=== PATIENT | male | born 1995 | race African-American/Black ===

== ENCOUNTER 2017-01-04 00:21 | Emergency (ER) | payer OTHER ==
[2017-01-04 00:27] VITALS: BP 146/97
--- NOTE | 2017-01-04 02:00 | ED ---
Progress - Progress Note Progress Note: Pt LWBS Course/Dx - Course Course Of Treatment: Pt's triage and nursing report indicate pt has nasal discomfort w/o overt signs of emergency. Signed up for pt but before I could go to room, pt LWBS. - Diagnoses Provider Diagnoses: Patient left without being seen
== END 2017-01-04 01:49 | disposition left against medical advice (07) ==
LOC: ED 00:21
DX: R60.0 Localized edema (principal); Z53.21 Procedure and treatment not carried out due to patient leaving prior to being seen by health care provider

== ENCOUNTER 2017-09-20 00:28 | Emergency (ER) | payer OTHER ==
--- NOTE | 2017-09-20 01:06 | ED ---
GI/ HPI - HPI Summary HPI Summary: 22 male presents to ED with concern for having an STD after unprotected oral sex and then protected vaginal sex. Patient states he has had sexual intercourse with significant other and noticed today that he had a white colored discharge today. Admits to some discomfort with urination, "but not much ". No difficulty with urination or stream. Patient states he has been diagnosed with chlamydia 1.5 years ago and did have sexual intercourse with the same individual recently. States he does not know if patient has STDs. No concern for HIV or Syphillis as he is asymptomatic otherwise but does want to be checked with labwork. No other symptoms or complaints. Denies abdominal pain, bloody discharge, fever/chills. Normal bowel movements and no other complaints at this time. Denies bumps, lumps, rashes and other genitalia external symptoms. No PMHx. No other medications. Denies pain and itching. - History of Current Complaint Chief Complaint: EDExposureBodyFluid Stated Complaint: STD TESTING Hx Obtained From: Patient Onset/Duration: Started Hours Ago Timing: Intermittent Current Severity: None Pain Intensity: 0 Additional Locations for Males: Penis - urethrea, white discharge Associated Signs and Symptoms: Positive: Discharge - white from urethera Additional Signs & Symptoms: Positive: Penile Discharge, STD - hx of chlamydia unknown if exposed recently, is possible. Negative: Penile Swelling, Lesions Aggravating Factor(s): Voiding, Urination Alleviating Factor(s): Nothing - Allergy/Home Medications Allergies/Adverse Reactions: Allergies Allergy/AdvReac Type Severity Reaction Status Date / Time No Known Allergies Allergy Verified 02/04/14 15:17 PMH/Surg Hx/FS Hx/Imm Hx Endocrine/Hematology History: Denies: Hx Diabetes - Surgical History Surgery Procedure, Year, and Place: n/a - Immunization History Date of Tetanus Vaccine: UNKNOWN Immunizations Up to Date: Yes Infectious Disease History: No Infectious Disease History: Denies: Traveled Outside the [place] in Last 30 Days - Family History Known Family History: Negative: Diabetes - Social History Alcohol Use: None Hx Substance Use: No Substance Use Type: Reports: None Hx Tobacco Use: No Smoking Status (MU): Never Smoked Tobacco Review of Systems Constitutional: Negative Cardiovascular: Negative Respiratory: Negative Positive: discharge - penile discharge All Other Systems Reviewed And Are Negative: Yes Physical Exam Triage Information Reviewed: Yes Vital Signs On Initial Exam: Initial Vitals Temp Pulse Resp BP Pulse Ox 98.8 F 84 16 127/78 100 09/20/17 00:38 09/20/17 00:38 09/20/17 00:38 09/20/17 00:38 09/20/17 00:38 Vital Signs Reviewed: Yes Appearance: Positive: Well-Appearing, No Pain Distress, Well-Nourished Skin: Positive: Warm, Skin Color Reflects Adequate Perfusion, Dry, Other - without rash. Negative: Numb, Cyanosis @, Pale, Erythema @ Neck: Positive: Supple, Nontender Respiratory/Lung Sounds: Positive: Clear to Auscultation, Breath Sounds Present. Negative: Rales, Rhonchi, Wheezes Cardiovascular: Positive: Normal, RRR, Pulses are Symmetrical in both Upper and Lower Extremities. Negative: Murmur, Rub Male Genital Exam: Positive: normal genitalia - per patient,, other - patient refused exam, denied symptoms Musculoskeletal: Positive: Normal Neurological: Positive: Normal, Sensory/Motor Intact, Alert, Oriented to Person Place, Time, NV Bundle Intact Distally, Normal Gait Diagnostics - Vital Signs Vital Signs Temp Pulse Resp BP Pulse Ox 09/20/17 00:38 98.8 F 84 16 127/78 100 - Laboratory Lab Statement: Any lab studies that have been ordered have been reviewed, and results considered in the medical decision making process. GIGU Course/Dx - Course Course Of Treatment: urinaysis obtained. GC/Chlam, HIV and syphillis testing pending. Patient denied rashes, nodules, blisters, lumps, bumps and any external abnormalities. refused exam. Due to history, symptoms and concern for possibility of STD exposure was treated today with ceftriaxone and azithromycin. Patient educated on risk of STD and recurrent infections. Encouraged to use protection and avoid intercourse with individuals with infection. Also instructed he will hear about results once obtained and if positive partner will also have to be informed/treated. Instructed to refrain from sexual intercorse until symptoms persist and all partners have been treated. No other concerns at this time. No pain or other symptoms/complaints. Follow up with PCP in 3-5 days. Aware of worsening signs and symptoms to watch out for. I discussed all my findings and test results with the patient. Patient understands and agrees. Patient was instructed to return to the emergency room immediately if any of the symptoms return or worsens. Patient was signed out to Dr Reyna pending urinalysis results to ensure no UTI before discharge. No other concerns at this time. - Diagnoses Differential Diagnoses - Male: STD, Urinary Tract Infection, Other - penile discharge Provider Diagnoses: Sexually transmitted infection - Physician Notifications Discussed Care Of Patient With: Dr Reyna pending urinalysis results at shift change Time Discussed With Above Provider: 02:45 Discharge - Discharge Plan Condition: Stable Disposition: OTHER Discharge Disposition Comment: signed out to Dr Reyna pending urinalysis results at shift change Patient Education Materials: Sexually Transmitted Diseases (ED), Condom Use (ED ), Safe Sex (ED) Referrals: [facility] [place] [facility]FERRAL [Outside] Additional Instructions: Encourage using protection to avoid transmitting infection. Refrain from sexual intercourse until follow up with PCP and for at least 7-10 days. Also until both partners have been treated. You will hear about your results once obtained. Any new or worsening symptoms please seek medical attention promptly. Follow up with PCP in 3-5 days.
[2017-09-20] MEDS ORDERED: cefTRIAXone VIAL(*) 250 MG VIAL IM ONE (02:23)
[2017-09-20] MEDS ORDERED: Azithromycin TAB* 250 MG PO ONE (02:24)
[2017-09-20 02:45] LABS: Urine Appearance Clear; Urine Blood Negative (Negative); Urine Color Yellow; Urine Ketones Negative (Negative); Urine Protein Negative (Negative); Urine Specific Gravity 1.027 (1.010-1.030); Urine Urobilinogen Negative (Negative)
[2017-09-20] MEDS ORDERED: Lidocaine 1%* 5 ML VIAL ONE (03:00)
[2017-09-20 03:18] VITALS: BP 120/75
== END 2017-09-20 03:16 | disposition home or self-care (01) ==
LOC: ED 00:28
DX: A64 Unspecified sexually transmitted disease (principal)
CPT/HCPCS: 36415; 81003; 86592; 86703; 87491; 87591; 96372; 99282; A9270-GY; J0696

== ENCOUNTER 2019-06-08 18:59 | Emergency (ER) | payer OTHER ==
--- NOTE | 2019-06-08 20:20 | ED ---
Headache - HPI Summary HPI Summary: Pt is a 24 y/o M presenting to the ED with a chief complaint of a headache. He states he gets intermittent seasonal migraines, and has been having them every day now for about two weeks. He states it is on the L side of his head and it becomes hard for him to do daily life, as he is in school. He also reports intermittent nausea and L ear ache. He denies weakness, changes in speech, changes in vision, or vomiting. - History Of Current Complaint Chief Complaint: EDHeadache Stated Complaint: HEADACHE Time Seen by Provider: 06/08/19 20:01 Hx Obtained From: Patient Onset/Duration: Sudden Onset, Started days ago, Still Present Initially Headache Was: Moderate Currently Pain Is: Moderate Timing: Intermittent, Lasting:, Hours Character: Migraine Location of Headache: Temporal - Left Aggravating Factor: Nothing Allevating Factors: Nothing Associated Signs And Symptoms: Nausea, Other (Noted In Comments) - L ear ache - Allergies/Home Medications Allergies/Adverse Reactions: Allergies Allergy/AdvReac Type Severity Reaction Status Date / Time No Known Allergies Allergy Verified 02/04/14 15:17 Home Medications: Home Medications Acetaminophen [Tylenol Extra Strength] 500 mg PO Q6HR PRN 06/08/19 [History Confirmed 06/08/19] PMH/Surg Hx/FS Hx/Imm Hx Previously Healthy: Yes Endocrine/Hematology History: Denies: Hx Diabetes Cardiovascular History: Denies: Hx Hypertension - Surgical History Surgery Procedure, Year, and Place: n/a - Immunization History Date of Tetanus Vaccine: UNKNOWN Infectious Disease History: No Infectious Disease History: Denies: Traveled Outside the [place] in Last 30 Days - Family History Known Family History: Negative: Diabetes - Social History Occupation: Student Alcohol Use: None Hx Substance Use: No Substance Use Type: Reports: None Hx Tobacco Use: No Smoking Status (MU): Never Smoked Tobacco Review of Systems Eyes: Negative Positive: Ear Ache Positive: Nausea. Negative: Vomiting Positive: Headache. Negative: Weakness, Slurred Speech All Other Systems Reviewed And Are Negative: Yes Physical Exam - Summary Physical Exam Summary: Constitutional: Well-developed, Well-nourished, Alert. (-) Distressed Skin: Warm, Dry HENT: Normocephalic; Atraumatic Eyes: Conjunctiva normal Neck: Musculoskeletal ROM normal neck. (-) JVD, (-) Stridor, (-) Tracheal deviation Cardio: Rhythm regular, rate normal, Heart sounds normal; Intact distal pulses. Radial pulses are 2+ and symmetric. (-) Murmur Pulmonary/Chest wall: Effort normal. (-) Respiratory distress, (-) Wheezes, (-) Rales Abd: Soft. (-) Tenderness, (-) Distension, (-) Guarding, (-) Rebound Musculoskeletal: (-) Edema Lymph: (-) Cervical adenopathy Neuro: Alert, Oriented x3, Strength normal, Cranial nerves II-XII are grossly intact. (-) Dysmetria, (-) Nystagmus, (-) Ataxia by finger to nose testing, (-) Sensory deficit. Psych: Mood and affect Normal Triage Information Reviewed: Yes Vital Signs On Initial Exam: Initial Vitals Temp Pulse Resp BP Pulse Ox 98.5 F 97 18 142/103 100 06/08/19 19:00 06/08/19 19:00 06/08/19 19:00 06/08/19 19:00 06/08/19 19:00 Vital Signs Reviewed: Yes Procedures - Sedation Patient Received Moderate/Deep Sedation with Procedure: No Diagnostics - Vital Signs Vital Signs Temp Pulse Resp BP Pulse Ox 06/08/19 19:00 98.5 F 97 18 142/103 100 - Laboratory Lab Statement: Any lab studies that have been ordered have been reviewed, and results considered in the medical decision making process. Headache Course/Dx - Course Course Of Treatment: Patient is here with periodic headache over the past 2 weeks. Patient is currently asymptomatic upon arrival. Patient had a normal neurologic exam. Patient's had takes off and on for years so he was given neurology follow-up. Patient is also discharged with a small prescription of Fioricet for symptomatic treatment. - Diagnoses Provider Diagnoses: Migraine Discharge ED - Sign-Out/Discharge Documenting (check all that apply): Patient Departure - Discharge Plan Condition: Stable Disposition: HOME Prescriptions: Butalb/Acetamin/Caff TAB* [Fioricet TAB*] 1 tab PO Q8HR PRN #8 tab MDD 3 tablets PRN Reason: Headache Referrals: Lorna Sharma MD [Primary Care Provider] - Chi Gandhi MD [Medical Doctor] - 3 Days Additional Instructions: Please follow up with Dr. Gandhi of neurology within the next 1-3 days, as well as your primary care provider. Take your prescribed medications as instructed. Come back to the emergency department with any new or worsening symptoms, including vomiting, one-sided weakness, or changes in your vision/speech. - Billing Disposition and Condition Condition: STABLE Disposition: Home - Attestation Statements Document Initiated by Trisha: Yes Documenting Scribe: Angelica Covington Provider For Whom Trisha is Documenting (Include Credential): Madhu Kumar MD. Scribe Attestation: Angelica Jenkins, naimaed for Madhu Kumar MD. on 06/09/19 at 0018. Scribe Documentation Reviewed: Yes Provider Attestation: The documentation as recorded by the Angelica marrufo accurately reflects the service I personally performed and the decisions made by Madhu wolfe MD. Status of Scribe Document: Viewed
[2019-06-08 20:33] VITALS: BP 140/79
== END 2019-06-08 20:35 | disposition home or self-care (01) ==
LOC: ED 18:59
DX: G43.909 Migraine, unspecified, not intractable, without status migrainosus (principal)
CPT/HCPCS: 99282